=== PATIENT | female | born 1980 | race Caucasian/White ===

== ENCOUNTER 2017-11-20 16:04 | Emergency (ER) | payer SELFPAY ==
--- NOTE | 2017-11-20 16:39 | ER Document Report ---
ED Medical Screen (RME) - General Chief Complaint: Suicidal Ideation Stated Complaint: ABD PAIN Time Seen by Provider: 11/20/17 16:35 Mode of Arrival: Ambulatory Information source: Patient Notes: 37-year-old female states that she relapsed has been using Ambien cocaine Adderall marijuana. Patient notes she has been trying to get into detox for the past few days did not think she was going to get help, states that she lives in the house that has guns she had thoughts of hurting herself as a result I have greeted and performed a rapid initial assessment of this patient. A comprehensive ED assessment and evaluation of the patient, analysis of test results and completion of the medical decision making process will be conducted by additional ED providers. PHYSICAL EXAMINATION: GENERAL: Well-appearing, well-nourished and in no acute distress. HEAD: Atraumatic, normocephalic. EYES: Pupils equal round extraocular movements intact, conjunctiva are normal. ENT: Nares patent NECK: Normal range of motion LUNGS: No respiratory distress Musculoskeletal: Normal range of motion NEUROLOGICAL: Normal speech, normal gait. PSYCH: Tearful SKIN: Warm, Dry, normal turgor, no rashes or lesions noted. - Related Data Allergies/Adverse Reactions: No Known Allergies Allergy (Verified 04/06/13 11:24) Past Medical History Neurological Medical History: Reports: Hx Migraine Psychiatric Medical History: Reports: Hx Bipolar Disorder, Hx Depression Past Surgical History: Reports: Hx Appendectomy, Hx Section - Immunizations Immunizations up to date: Yes Hx Diphtheria, Pertussis, Tetanus Vaccination: Yes Physical Exam - Vital signs Vitals: Temp Pulse Resp BP Pulse Ox 98.2 F 97 16 123/92 H 93 11/20/17 16:11 11/20/17 16:11 11/20/17 16:11 11/20/17 16:11 11/20/17 16:11 Course - Vital Signs Vital signs: Temp Pulse Resp BP Pulse Ox 98.2 F 97 16 123/92 H 93 11/20/17 16:11 11/20/17 16:11 11/20/17 16:11 11/20/17 16:11 11/20/17 16:11 Doctor's Discharge - Discharge Referrals: LOCALMD,NO [Primary Care Provider] - Follow up as needed
[2017-11-20 17:03] LABS: APPEARANCE,URINE CLEAR; BILIRUBIN,URINE NEGATIVE (NEGATIVE); COLOR,URINE STRAW; GLUCOSE, URINE NEGATIVE (NEGATIVE); KETONES,URINE TRACE mg/dL (NEGATIVE); LEUKOCYTE ESTERASE,URINE NEGATIVE (NEGATIVE); NITRITE,URINE NEGATIVE (NEGATIVE); PROTEIN,URINE NEGATIVE (NEGATIVE); URINE SPECIFIC GRAVITY 1.004; UROBILINOGEN,URINE NEGATIVE mg/dL (<2.0)
[2017-11-20 17:20] LABS: URINE AMPHETAMINES SCREEN UNCONFIRMED POSITIVE; URINE BARBITURATES SCREEN NEGATIVE; URINE BENZODIAZEPINES SCREEN NEGATIVE; URINE COCAINE SCREEN UNCONFIRMED POSITIVE; URINE MARIJUANA (THC) SCREEN UNCONFIRMED POSITIVE; URINE METHADONE SCREEN NEGATIVE; URINE PHENCYCLIDINE SCREEN NEGATIVE
[2017-11-20 17:24] LABS: ABSOLUTE EOSINOPHILS # (AUTO) 0.2 10^3/uL (0.0-0.6); ABSOLUTE LYMPHOCYTES (AUTO) 2.2 10^3/uL (0.5-4.7); ABSOLUTE MONOCYTES (AUTO) 0.4 10^3/uL (0.1-1.4); ABSOLUTE NEUT (AUTO) 6.6 10^3/uL (1.7-8.2); BASOPHILS % (AUTO) 0.5 % (0-2); EOSINOPHILS % (AUTO) 1.8 % (0-6); HEMATOCRIT 42.1 % (36.0-47.0); HEMOGLOBIN 14.3 g/dL (12.0-15.5); MEAN CORPUSCULAR HEMOGLOBIN 30.2 pg (27.0-33.4); MEAN CORPUSCULAR VOLUME 89 fl (80-97); MONOCYTES % (AUTO) 4.7 % (3-13); PLATELET COUNT 384 10^3/uL (150-450); RED BLOOD COUNT 4.73 10^6/uL (3.72-5.28); RED CELL DISTRIBUTION WIDTH 13.7 % (11.5-14.0); TOTAL CELLS COUNTED % (AUTO) 100 %; WHITE BLOOD COUNT 9.5 10^3/uL (4.0-10.5)
[2017-11-20 17:46] LABS: ALANINE AMINOTRANSFERASE 24 U/L (9-52); ALBUMIN 4.5 g/dL (3.5-5.0); ALKALINE PHOSPHATASE 49 U/L (38-126); ANION GAP 12 (5-19); ASPARTATE AMINO TRANSFERASE 17 U/L (14-36); BILIRUBIN,DIRECT 0.2 mg/dL (0.0-0.4); BILIRUBIN,TOTAL 0.9 mg/dL (0.2-1.3); BLOOD UREA NITROGEN 10 mg/dL (7-20); CALCIUM 9.8 mg/dL (8.4-10.2); CARBON DIOXIDE 25 mmol/L (22-30); CHLORIDE 107 mmol/L (98-107); GLUCOSE 87 mg/dL (75-110); POTASSIUM 4.6 mmol/L (3.6-5.0); SODIUM 144.3 mmol/L (137-145); TOTAL PROTEIN 7.5 g/dL (6.3-8.2)
[2017-11-20 17:50] LABS: ACETAMINOPHEN < 10 ug/mL (10-30); ALCOHOL < 10 mg/dL (NONE DETECTED); SALICYLATE < 1.0 mg/dL (2.0-20.0)
--- NOTE | 2017-11-20 18:40 | ER Document Report ---
ED Psych Disorder / Suicide - General Chief Complaint: Suicidal Ideation Stated Complaint: ABD PAIN Time Seen by Provider: 11/20/17 16:35 Mode of Arrival: Ambulatory Notes: 37-year-old female patient emergency department chief complaint of suicidal ideation and drug addiction. States that she has been abusing drugs for quite some time now. States that she can get off of cocaine, Adderall, methamphetamines. Wants help. States that she feels like she is ruined her life. Is concerned that she might get a gun and kill herself because there are guns in the house. Patient states that she is dealing and hates her life and hates the person that she has become. Denies taking anything to kill herself or harm herself at this time. States that she only wants help. [employer] dictation system was used in the transcribing of this medical document. There may be contextual errors in the express manager which are not actual representations of the patient's history of present illness, physical exam or medical treatment and decision making plans. - HPI Patient complains to provider of: Overdose, Suicidal ideation Onset: Just prior to arrival Onset was: Gradual Quality of pain: No pain - Related Data Allergies/Adverse Reactions: No Known Allergies Allergy (Verified 04/06/13 11:24) Past Medical History - General Information source: Patient - Social History Smoking Status: Current Every Day Smoker Chew tobacco use (# tins/day): No Frequency of alcohol use: Occasional Drug Abuse: Cocaine, Marijuana, Methamphetamine, Prescription drugs Lives with: Friend Family History: Reviewed & Not Pertinent Patient has suicidal ideation: Yes Patient has homicidal ideation: No Neurological Medical History: Reports: Hx Migraine Renal/ Medical History: Denies: Hx Peritoneal Dialysis Psychiatric Medical History: Reports: Hx Bipolar Disorder, Hx Depression Past Surgical History: Reports: Hx Appendectomy, Hx Section - Immunizations Immunizations up to date: Yes Hx Diphtheria, Pertussis, Tetanus Vaccination: Yes Review of Systems - Review of Systems Constitutional: No symptoms reported EENT: No symptoms reported Cardiovascular: No symptoms reported Respiratory: No symptoms reported Gastrointestinal: Abdominal pain, Nausea. denies: Vomiting Genitourinary: No symptoms reported Female Genitourinary: No symptoms reported Musculoskeletal: No symptoms reported Skin: No symptoms reported Hematologic/Lymphatic: No symptoms reported Neurological/Psychological: Depression, Suicidal ideation, Other - Drug addiction Physical Exam - Vital signs Vitals: Temp Pulse Resp BP Pulse Ox 98.2 F 97 16 123/92 H 93 11/20/17 16:11 11/20/17 16:11 11/20/17 16:11 11/20/17 16:11 11/20/17 16:11 Interpretation: Normal - Notes Notes: Tearful, crying but in no acute distress. - General General appearance: Appears well, Alert - HEENT Head: Normocephalic, Atraumatic Eyes: Normal Pupils: PERRL - Respiratory Respiratory status: No respiratory distress Chest status: Nontender Breath sounds: Normal Chest palpation: Normal - Cardiovascular Rhythm: Regular Heart sounds: Normal auscultation Murmur: No - Abdominal Inspection: Normal Distension: No distension Bowel sounds: Normal Tenderness: Nontender Organomegaly: No organomegaly - Back Back: Normal, Nontender - Extremities General upper extremity: Normal inspection, Nontender, Normal color, Normal ROM , Normal temperature General lower extremity: Normal inspection, Nontender, Normal color, Normal ROM , Normal temperature, Normal weight bearing. No: Yomi's sign - Neurological Neuro grossly intact: Yes Cognition: Normal Orientation: AAOx4 [place] Coma Scale Eye Opening: Spontaneous [place] Coma Scale Verbal: Oriented Deniz Coma Scale Motor: Obeys Commands Deniz Coma Scale Total: 15 Speech: Normal Motor strength normal: LUE, RUE, LLE, RLE Sensory: Normal - Psychological Associated symptoms: Depressed, Tearful - Skin Skin Temperature: Warm Skin Moisture: Dry Skin Color: Normal Course - Re-evaluation Re-evalutation: 11/20/17 23:57 Well-appearing female in no significant distress verbalizing ideation. Patient definitely at high risk due to her drug abuse. Feels hopeless. At this time patient would likely benefit from inpatient drug and alcohol treatment program with mental health intervention. We will have mental health see her in the morning. At this time will place on 24 hour papers/petition. 11/21/17 03:31 Labs are unremarkable. Patient resting comfortably. Cleared from a medical standpoint for psychiatric evaluation. 11/21/17 03:31 Laboratory 11/20/17 11/20/17 11/20/17 16:15 16:15 17:05 WBC 9.5 RBC 4.73 Hgb 14.3 Hct 42.1 MCV 89 MCH 30.2 MCHC 34.0 RDW 13.7 Plt Count 384 Seg Neutrophils % 70.0 Lymphocytes % 23.0 Monocytes % 4.7 Eosinophils % 1.8 Basophils % 0.5 Absolute Neutrophils 6.6 Absolute Lymphocytes 2.2 Absolute Monocytes 0.4 Absolute Eosinophils 0.2 Absolute Basophils 0.0 Sodium Potassium Chloride Carbon Dioxide Anion Gap BUN Creatinine Est GFR ( Amer) Est GFR (Non-Af Amer) Glucose Calcium Total Bilirubin Direct Bilirubin Neonat Total Bilirubin Neonat Direct Bilirubin Neonat Indirect Bili AST ALT Alkaline Phosphatase Total Protein Albumin Lipase Serum HCG, Qual Urine Color STRAW Urine Appearance CLEAR Urine pH 6.0 Ur Specific [place] 1.004 Urine Protein NEGATIVE Urine Glucose (UA) NEGATIVE Urine Ketones TRACE H Urine Blood NEGATIVE Urine Nitrite NEGATIVE Urine Bilirubin NEGATIVE Urine Urobilinogen NEGATIVE Ur Leukocyte Esterase NEGATIVE Urine WBC (Auto) 5 Urine RBC (Auto) 0 Urine Bacteria (Auto) 3+ Squamous Epi Cells Auto 3 Urine Mucus (Auto) RARE Urine Ascorbic Acid NEGATIVE Salicylates Urine Opiates Screen NEGATIVE Urine Methadone Screen NEGATIVE Acetaminophen Ur Barbiturates Screen NEGATIVE Ur Phencyclidine Scrn NEGATIVE Ur Amphetamines Screen UNCONFIRMED POSITIVE U Benzodiazepines Scrn NEGATIVE Urine Cocaine Screen UNCONFIRMED POSITIVE U Marijuana (THC) Screen UNCONFIRMED POSITIVE Serum Alcohol 11/20/17 11/20/17 11/20/17 17:05 17:05 17:05 WBC RBC Hgb Hct MCV MCH MCHC RDW Plt Count Seg Neutrophils % Lymphocytes % Monocytes % Eosinophils % Basophils % Absolute Neutrophils Absolute Lymphocytes Absolute Monocytes Absolute Eosinophils Absolute Basophils Sodium 144.3 Potassium 4.6 Chloride 107 Carbon Dioxide 25 Anion Gap 12 BUN 10 Creatinine 0.71 Est GFR ( Amer) > 60 Est GFR (Non-Af Amer) > 60 Glucose 87 Calcium 9.8 Total Bilirubin 0.9 Direct Bilirubin 0.2 Neonat Total Bilirubin Not Reportable Neonat Direct Bilirubin Not Reportable Neonat Indirect Bili Not Reportable AST 17 ALT 24 Alkaline Phosphatase 49 Total Protein 7.5 Albumin 4.5 Lipase 40.4 Serum HCG, Qual NEGATIVE Urine Color Urine Appearance Urine pH Ur Specific [place] Urine Protein Urine Glucose (UA) Urine Ketones Urine Blood Urine Nitrite Urine Bilirubin Urine Urobilinogen Ur Leukocyte Esterase Urine WBC (Auto) Urine RBC (Auto) Urine Bacteria (Auto) Squamous Epi Cells Auto Urine Mucus (Auto) Urine Ascorbic Acid Salicylates < 1.0 L Urine Opiates Screen Urine Methadone Screen Acetaminophen < 10 L Ur Barbiturates Screen Ur Phencyclidine Scrn Ur Amphetamines Screen U Benzodiazepines Scrn Urine Cocaine Screen U Marijuana (THC) Screen Serum Alcohol < 10 - Vital Signs Vital signs: Temp Pulse Resp BP Pulse Ox 98.2 F 97 16 123/92 H 93 11/20/17 16:11 11/20/17 16:11 11/20/17 16:11 11/20/17 16:11 11/20/17 16:11 - Laboratory Result Diagrams: 11/20/17 17:05 11/20/17 17:05 Laboratory results interpreted by me: 11/20/17 11/20/17 16:15 17:05 Urine Ketones TRACE H Salicylates < 1.0 L Acetaminophen < 10 L - EKG Interpretation by Me EKG shows normal: Sinus rhythm, Printer, Intervals, QRS Complexes, ST-T Waves Discharge - Discharge Clinical Impression: Polysubstance (excluding opioids) dependence, Suicidal ideation Condition: Good Referrals: LOCALMD,NO [NO LOCAL MD] - Follow up as needed
[2017-11-20] MEDS ORDERED: LORAZEPAM 1 MG TABLET PO ONE (19:55)
[2017-11-20] MEDS ORDERED: FAMOTIDINE 20 MG TABLET PO ONE (19:55)
--- NOTE | 2017-11-21 09:51 | EKG REPORT ---
SEVERITY:- NORMAL ECG - SINUS RHYTHM : Confirmed by: Zeny Whitley 21-Nov-2017 09:51:22
--- NOTE | 2017-11-21 09:52 | EKG REPORT ---
SEVERITY:- ABNORMAL ECG - SINUS RHYTHM RIGHT AXIS DEVIATION CONSIDER R ARM LEFT ARM REVERSAL LOW VOLTAGE IN FRONTAL LEADS BORDERLINE Q WAVES IN LATERAL LEADS LATERAL Q WAVES, PROBABLY NORMAL VARIATION NONSPECIFIC T ABNORMALITIES, LATERAL LEADS : Confirmed by: Zeny Whitley 21-Nov-2017 09:52:22
--- NOTE | 2017-11-21 10:07 | ER Document Report ---
Doctor's Note Notes: 11/21/17 10:06 Patient seen and evaluated by myself. Patient's vital signs are stable. I reviewed the patient's lab work. Patient has no complaints at this time. Awaiting psychiatric evaluation.
[2017-11-21 17:55] VITALS: BP 106/71
--- NOTE | 2017-11-22 11:10 | PSYCHOLOGICAL NOTE ---
Psych Note - Psych Note Psych Note: Met with Patient who advised she has been abusing cocaine, ambien and adderall. She reported previous addiction to benzodiazepines. She stated on the previous even she overdosed on 4-6 adderall and 8-10 ambien, as well as cocaine. She stated she was living in [facility] and decided to retun to [place] to start over and moved in with a couple she has known for a short time. She has a lived there for one week and has stolen their scripts for adderall and ambien, and lied to them about various things. She reported she contact [employer] and Aryan Esparza responded but "left me crying in the driveway." She reported he tried to help get her into a detox but there were no beds avail and she was placed on a waiting list. She felt uncomfortable staying in the home where she was residing because there were guns and she began to feel hopeless, so she decided to OD. She reported recognizing she needed help/ She also reported she has no place to stay as the couple advised she is unable to return due to her stealing and lying. Patient reported she is legally to Leroy Downey since 2009 but filed for legal separation in 2010. Currently her 8 -year old son, Jacinto Downey is living with his father for the summer. Patient reported her son was living with her in [facility] but she sent him to his father's a few weeks ago for the summer and while she was making the move back to [facility]. She indicated she and her have joint custody of her son. Patient reported a history of multiple inpatient detox's and 2 previous suicide attempts via overdose where she was sent to [facility]. She reported past felony drug charges and successful completion of probation with exception of paying an $8.52 charge left on her probation. She denied any outstanding charges. She indicated she has Medicaid but does not get a medicaid check monthly, and was unable to explain how this was the case/ She does receive food stamps. Patient reported she is interested in long-term substance abuse treatment and was provided the information. Patient was alert and oriented to person, place, time, and circumstance. Mood was euthymic and cooperative, and affect was mood congruent. She denied suicidal / homicidal ideation, intent or plan. Thought processes were linear, organized, and rational. Conversational speech was within normal limits for rate , tone, and prosody. Intellectual abilities were estimated within the average range. Eye contact was well maintained. Short and mcfp memory was intact. Attention and concentration was within normal limits. Insight and judgment were fair, as was impulse control. Patient's boyfriend, Ken Sanchez contacted the ED multiple times asking questions and seeking information regarding this Patient. He became upset when the Patient advised him she was "being discharged with no place to go." Mr. Sanchez was advised that he could not be provided any information as the Patient did not provide consent to give him any information regarding her status. He continued to call and eventually he was directed to stop calling as he would not receive any further information or direction. Medication recommendations by psychiatric provider included: 1. Effexor 37.5 mg daily 2. Buspar 5 mg twice per day Diagnoses: 1. 304.10 (F13.20) Ambien Use Disorder, Moderate 2. 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 305.60 (F14.10 Cocaine Use Disorder, Mild 4. Homeless Impression / Plan: Patient is recommended for rescind of IVC. She is denying suicidal / homicidal ideation, intent or plan and reported she was frustrated with wanting to get into detox. Patient was provided with information on the available detox centers and advised to reconnect with Aryan Esparza regarding bed availability, as he was the best bet for immediate assistance given he placed her on the waiting lists. Patient was provided resources for [facility] and [facility] and advised the process of completing the application and the expectation financially and wait time once the application was complete. Patient reported she would complete the packet upon discharge. Multiple phone calls were made on Patient's behalf to homeless services to assist with obtaining her bed in the community shelters, but none were available this evening. Patient was made aware. She advised she had a friend she could contact and he might let he stay with him. Patient was also advised she could contact her [id number] who might be willing to assist her, but she would need to reach out to her. Patient advised she tried to call Sari but Sari did not answer the phone. I asked nurse if this information was accurate and she stated the Patient only called her boyfriend Ken Sanchez, and no other phone calls were made. Patient reported she would follow up with the referrals provided. ED Physician in agreement with recommendation and disposition.
== END 2017-11-21 18:13 | disposition home or self-care (01) ==
LOC: ER 16:04
DX: F19.20 Other psychoactive substance dependence, uncomplicated (principal); F32.9 Major depressive disorder, single episode, unspecified; R45.851 Suicidal ideations; R10.9 Unspecified abdominal pain; R11.0 Nausea; F17.200 Nicotine dependence, unspecified, uncomplicated; Z59.0 Homelessness
CPT/HCPCS: 36415; 80053; 80307; 81001; 83690; 84703; 85025; 93005; 93010; 99285

== ENCOUNTER 2017-11-21 21:53 | Emergency (ER) | payer SELFPAY ==
[2017-11-21 22:07] VITALS: BP 114/95
--- NOTE | 2017-11-21 23:26 | ER Document Report ---
ED General - General Chief Complaint: Suicidal Ideation Stated Complaint: SUICIDIAL IDEATION Time Seen by Provider: 11/21/17 23:23 - HPI Patient complains to provider of: Suicidal ideation and polysubstance abuse Notes: Patient is coming back into the ER tonight for another evaluation. Patient was seen earlier today for psychiatric evaluation suicidal ideation and also had polysubstance abuse. Patient is accompanied by to mobile crisis workers. Patient states that she does not feel like living anymore and thinks that she may walk out in traffic. Patient states after being discharged from the ER has been sitting in the lobby has not left the hospital grounds. Patient does not give a reason why she has not yet walked out in traffic to be discharged. Patient otherwise is sitting with her belongings in the e office. Patient states she has tried multiple times to follow-up with resources provided to her about her previous departure today from the ER with no success Mobile crisis workers also added to the HPI stating that the patient is currently homeless is that she was recently taken in by local family however started stealing from them was taken to the local homeless long term is also caught stealing there and currently does not have any place to go because of her stealing. States they do have the case on her and have been trying to contact her today after discharge from the hospital with no success until earlier this evening. - Related Data Allergies/Adverse Reactions: No Known Allergies Allergy (Verified 04/06/13 11:24) Past Medical History - Social History Smoking Status: Current Every Day Smoker Chew tobacco use (# tins/day): No Frequency of alcohol use: Occasional Drug Abuse: Cocaine, Marijuana, Prescription drugs Family History: Reviewed & Not Pertinent Patient has suicidal ideation: Yes Patient has homicidal ideation: No Neurological Medical History: Reports: Hx Migraine Renal/ Medical History: Denies: Hx Peritoneal Dialysis Psychiatric Medical History: Reports: Hx Bipolar Disorder, Hx Depression Past Surgical History: Reports: Hx Appendectomy, Hx Section - Immunizations Immunizations up to date: Yes Hx Diphtheria, Pertussis, Tetanus Vaccination: Yes Review of Systems - Review of Systems Constitutional: No symptoms reported EENT: No symptoms reported Cardiovascular: No symptoms reported Respiratory: No symptoms reported Gastrointestinal: No symptoms reported Genitourinary: No symptoms reported Female Genitourinary: No symptoms reported Musculoskeletal: No symptoms reported Skin: No symptoms reported Hematologic/Lymphatic: No symptoms reported Neurological/Psychological: No symptoms reported Physical Exam - Vital signs Vitals: Temp Pulse Resp BP Pulse Ox 98.1 F 89 20 114/95 H 98 11/21/17 22:06 11/21/17 22:06 11/21/17 22:06 11/21/17 22:06 11/21/17 22:06 Interpretation: Normal - General General appearance: Appears well, Alert - HEENT Head: Normocephalic, Atraumatic Eyes: Normal Pupils: PERRL - Respiratory Respiratory status: No respiratory distress Chest status: Nontender Breath sounds: Normal Chest palpation: Normal - Cardiovascular Rhythm: Regular Heart sounds: Normal auscultation Murmur: No - Abdominal Inspection: Normal Distension: No distension Bowel sounds: Normal Tenderness: Nontender Organomegaly: No organomegaly - Back Back: Normal, Nontender - Extremities General upper extremity: Normal inspection, Nontender, Normal color, Normal ROM , Normal temperature General lower extremity: Normal inspection, Nontender, Normal color, Normal ROM , Normal temperature, Normal weight bearing. No: Yomi's sign - Neurological Neuro grossly intact: Yes Cognition: Normal Orientation: AAOx4 [place] Coma Scale Eye Opening: Spontaneous [place] Coma Scale Verbal: Oriented [place] Coma Scale Motor: Obeys Commands [place] Coma Scale Total: 15 Speech: Normal Motor strength normal: LUE, RUE, LLE, RLE Sensory: Normal - Psychological Associated symptoms: Agitated - Skin Skin Temperature: Warm Skin Moisture: Dry Skin Color: Normal Course - Re-evaluation Re-evalutation: 11/22/17 01:09 Reviewed the patient's previous visit had a long discussion with both crisis team. At this time do not see a need for another reevaluation for the patient mobile crisis states that we will continue to follow up with the patient. We explained this to the patient she left abruptly. - Vital Signs Vital signs: Temp Pulse Resp BP Pulse Ox 98.1 F 89 20 114/95 H 98 11/21/17 22:06 11/21/17 22:06 11/21/17 22:06 11/21/17 22:06 11/21/17 22:06 Discharge - Discharge Clinical Impression: Polysubstance (excluding opioids) dependence, Suicidal ideation Condition: Stable Disposition: HOME, SELF-CARE Additional Instructions: You were seen and consulted by psychiatric services in the Emergency Department for substance abuse and suicidal ideation, and determined to be appropriate for discharge. You were referred to long-term substance abuse treatment and provided resources. You were advised you were homeless and again you were provided resources for assistance. You are encouraged to follow through with the referrals given in an effort to make progress towards your stated outcome of sobriety. Medications Effexor 37.5 mg daily Buspar 5 mg twice per day DEPRESSION: Your evaluation reveals that you have depression. While symptoms may be vague, they often include disturbance of sleep, fatigue, loss of appetite, and general loss of interest in life. While depression may be a side effect of drugs, or a reaction to a major change in your life, many cases have no known cause. If depression is acute, and related to a major loss in your life, you can expect it to clear completely with time. If you have been depressed a long time , are prone to repeated bouts of depression or low mood, or have been thinking of suicide, get help. Depression can be treated with anti-depressant medication and counselling. Long-term depression will often take a few weeks to clear, even with appropriate medication. Follow-up care is important. SUICIDAL IDEATION: Suicidal ideation is a common medical term for thoughts about suicide, which may be as detailed as a formulated plan, without the suicidal act itself. Although most people who undergo suicidal ideation do not commit suicide, some go on to make suicide attempts. The range of suicidal ideation varies greatly from fleeting to detailed planning, role playing, and unsuccessful attempts. While thoughts about suicide are common, most people do not carry out serious actions to commit suicide. Based upon your evaluation and discussion with you, we do not believe you are currently at risk to act upon your thoughts of suicide. You have agreed to return to the Emergency Department, at any time , if you feel inclined to act upon your suicidal thoughts. COCAINE ABUSE: Cocaine causes many dangerous medical problems. Problems can occur even with "usual" amounts. Cocaine affects judgement, creating a sense of invulnerability. Cocaine users often make bad decisions that seem "great" at the time. Most cocaine users eventually will be hurt by bad job performance, damaged personal relations, crime, and unsafe sexual practices. Toxic effects of cocaine can include seizures, hallucinations, delusions, high blood pressure, heart damage, or sudden . There's always the risk of a "bad batch." But heart attacks, brain hemorrhages, or cardiac arrest can occur unpredictably even with "normal" use. Injection of cocaine is risky for abscesses, endocarditis (heart infection) , pneumonia, and AIDS. Withdrawal from cocaine often causes anxiety and drug cravings. Some users become paranoid and psychotic. Many treatment programs are available, but you must make the decision to quit. Medication can be prescribed to control the symptoms of cocaine toxicity (beta blockers or benzodiazepines). Withdrawal symptoms may require tranquilizers. AMPHETAMINE / METHAMPHETAMINE ABUSE: Amphetamines are addicting stimulants. Amphetamines overstimulate the nervous system and give a false feeling of power and mastery. These drugs may be obtained as prescription pills for weight loss, narcolepsy, or attention- deficit disorder. More often they're bought as an illegal street drug, methamphetamine (crank, crystal, speed). Using amphetamines repeatedly can lead to serious medical problems including malnutrition, severe depression, and paranoia. It can take increasing amounts to feel good. Eventually, there will be a "burn out." When you go off amphetamines there is a period of depression that may last for weeks or even months. High doses of amphetamines can cause seizures, confusion, hallucinations, delusions, high blood pressure, muscle damage, heart damage, or sudden . Many times these deadly complications occur even with "normal" doses. Injection of amphetamines is risky for developing abscesses, endocarditis ( heart infection), pneumonia, and AIDS. Withdrawal from amphetamines often causes anxiety, depression, and drug cravings. Some users become paranoid and psychotic. There may be cramps, nausea , and vomiting. Many treatment programs are available, but you must make the decision to quit. Medication can be prescribed to control the symptoms of amphetamine toxicity (beta blockers or benzodiazepines). Withdrawal symptoms may require tranquilizers. FOLLOW-UP CARE: If you have been referred to a physician for follow-up care, call the physician s office for an appointment as you were instructed or within the next two days. If you experience worsening or a significant change in your symptoms, notify the physician immediately or return to the Emergency Department at any time for re-evaluation.
== END 2017-11-21 23:30 | disposition home or self-care (01) ==
LOC: ER 21:53
DX: R45.851 Suicidal ideations (principal); F11.10 Opioid abuse, uncomplicated; F17.200 Nicotine dependence, unspecified, uncomplicated; Z59.0 Homelessness
CPT/HCPCS: 99283